=== PATIENT | female | born 1975 | race African-American/Black ===

== ENCOUNTER 2023-10-13 11:41 | Emergency (ER) | payer MEDICARE, MEDICAID ==
[~2023-10-13] VITALS: Ht 177.8 cm; Wt 104.0 kg
[2023-10-13 11:55] VITALS: TEMP 98.4; O2SAT 100
[2023-10-13] MEDS ORDERED: KETOROLAC 30MG/ML VIAL IM ONE (14:30)
[2023-10-13] MEDS ORDERED: LIDOCAINE 5% PATCH TOP SCH ×2 (14:30→14:45)
[2023-10-13] MEDS ORDERED: CYCLOBENZAPRINE 10MG TABLET PO ONE (14:30)
[2023-10-13 14:46] VITALS: BP 109/78; PULSE 106; RESP 20
[2023-10-13] MEDS ORDERED: LIDO700A15 TP (15:13)
[2023-10-13] MEDS ORDERED: CYCL5TAB MT (15:13)
[2023-10-13] MEDS ORDERED: NAPR-1176 MT (15:13)
== END 2023-10-14 07:26 | disposition home or self-care (01) ==
LOC: ER 11:41
DX: M54.50 Low back pain, unspecified (principal); G89.29 Other chronic pain; Z90.710 Acquired absence of both cervix and uterus
CPT/HCPCS: 99283; 96372; J1885